=== PATIENT | male | born 1950 | race Caucasian/White ===

== ENCOUNTER 2022-02-28 12:01 | Inpatient (IN) | payer MEDICARE ==
[~2022-02-28] VITALS: Ht 177.8 cm; Wt 54.0 kg
[~2022-02-28 12:01] MED LIST: ASPI325; HYDR-86 PO; VARE1 PO
[2022-02-28 12:43] LABS: BASOPHILS ABSOLUTE AUTO 0.02 K/mm3 (0.00-0.23); BASOPHILS PERCENT AUTO 0 % (0-2); EOSINOPHILS ABSOLUTE AUTO 0.04 K/mm3 (0.00-0.68); EOSINOPHILS PERCENT AUTO 0 % (0-6); Hematocrit 38.1 % (37.0-53.0); Hemoglobin 13.3 g/dL (13.5-17.5); IMMATURE GRAN ABSOLUTE AUTO 0.03 K/mm3 (0.00-0.10); IMMATURE GRAN PERCENT AUTO 0 % (0-1); LYMPHOCYTES ABSOLUTE AUTO 1.74 K/mm3 (0.84-5.20); LYMPHOCYTES PERCENT AUTO 16 % (21-46); MONOCYTES ABSOLUTE AUTO 1.06 K/mm3 (0.16-1.47); MONOCYTES PERCENT AUTO 10 % (4-13); Mean Corpuscular HGB 32.8 pg (26.0-34.0); Mean Corpuscular HGB Conc 34.9 g/dL (31.5-36.5); Mean Corpuscular Volume 94 fL (80-100); Mean Platelet Volume 9.6 fL (9.1-12.4); NEUTROPHILS ABSOLUTE AUTO 8.03 K/mm3 (1.96-9.15); NEUTROPHILS PERCENT AUTO 74 % (41-73); Platelet Count 257 K/mm3 (150-400); RDW Coefficient Variation 13.2 % (11.7-14.2); RDW Standard Deviation 45.5 fL (35.1-46.3); Red Blood Cell Count 4.06 M/mm3 (4.30-5.90); White Blood Cell Count 10.92 K/mm3 (4.00-11.30)
[2022-02-28 12:55] LABS: Bicarbonate Venous 25.7 mmol/L (24.0-30.0); PCO2 Venous 59.4 mmHg (38-42)
[2022-02-28] MEDS ORDERED: TAMS.4ER PO (12:57)
[2022-02-28] MEDS ORDERED: Norco 10-325 T1 EACH PO (12:57)
[2022-02-28] MEDS ORDERED: METO25ER PO (12:57)
[2022-02-28] MEDS ORDERED: Acetaminophen650 M1 (12:58)
[2022-02-28] MEDS ORDERED: ALBU90OI6 INH (12:58)
[2022-02-28 12:59] LABS: Bun/Creatinine Ratio 18.8 (12.0-20.0); Calcium, Blood 8.7 mg/dL (8.5-10.1); Creatinine, Blood 0.58 mg/dL (0.60-1.20); Potassium, Blood 5.2 mmol/L (3.5-5.5)
[2022-02-28 13:47] LABS: Influenza A, PCR NEGATIVE (NEGATIVE); Influenza B, PCR NEGATIVE (NEGATIVE); Resp Syncytial Virus, PCR NEGATIVE (NEGATIVE); SARS-Cov-2 (COVID-19) PCR, MMC NEGATIVE (NEGATIVE)
[2022-02-28 17:08] LABS: PCO2 Arterial 41.2 mmHg (35-45); PO2 Arterial 84.8 mmHg (80-100); pH Blood Arterial 7.38 (7.35-7.45)
--- NOTE | 2022-02-28 18:12 | NUR ---
ASSUMED CARE OF PT THIS PM PT. ALERT AND ORIENTED UPON ARRIVAL TO UNIT, PT WAS SWITCHED TO TO 2LNC UPON ARRIVAL AND TITRATED DOWN HE WAS NOT TOLERATING CPAP MASK. COUGHING CONSTANTLY AND FEELING UNABLE TO BREATHE. PT. CONTINUES COUGHING CONSTANTLY, DRY HACKING COUGH, WITH ONE TO TWO WORDS. RT NOTIFIED AND BREATHING TX GIVEN. CONTINUES TO HAVE AUDIBLE WHEEZES T/O. PT. REPORTS CHRONIC PAIN. PT LIVES INDEPENDENTLY AT HOME, IS AN EVERY DAY SMOKER AND DRINKS AT LEAST 6 BEERS/ DAY. FAMILY AT BEDSIDE AND REPORTS EXTREME WEIGHT LOSS RECENTLY AND POOR APPETITE. HTN NOTED AND SINUS TACH UPON ARRIVAL. DENIES ANY CHEST PAIN OR PRESSURE. PT ORIENTED TO ROOM, AND CALL LIGHT, INSTRUCTED TO CALL PRIOR TO GETTING OOB DUE TO WORK OF BREATHING. VERBALIZED UNDERSTANDING.
--- NOTE | 2022-02-28 18:16 | NUR ---
DR. NUNES AT BEDSIDE TO EVAL. FAMILY ABLE TO VOICE CONCERNS AND UPDATED ON PT CONDITION. AWAITING ADDITIONAL ORDERS.
--- NOTE | 2022-02-28 18:16 | NUR ---
PT ASSISTED TO VOID USING URINAL AND NEW ATTENDS PLACED.
[2022-03-01 04:42] LABS: BASOPHILS PERCENT AUTO 0 % (0-2); EOSINOPHILS PERCENT AUTO 0 % (0-6); Hematocrit 36.1 % (37.0-53.0); Hemoglobin 12.6 g/dL (13.5-17.5); IMMATURE GRAN ABSOLUTE AUTO 0.03 K/mm3 (0.00-0.10); IMMATURE GRAN PERCENT AUTO 0 % (0-1); LYMPHOCYTES ABSOLUTE AUTO 0.72 K/mm3 (0.84-5.20); LYMPHOCYTES PERCENT AUTO 9 % (21-46); MONOCYTES ABSOLUTE AUTO 0.15 K/mm3 (0.16-1.47); MONOCYTES PERCENT AUTO 2 % (4-13); Mean Corpuscular HGB 32.6 pg (26.0-34.0); Mean Corpuscular HGB Conc 34.9 g/dL (31.5-36.5); Mean Corpuscular Volume 93 fL (80-100); Mean Platelet Volume 9.4 fL (9.1-12.4); NEUTROPHILS ABSOLUTE AUTO 7.45 K/mm3 (1.96-9.15); NEUTROPHILS PERCENT AUTO 89 % (41-73); Platelet Count 259 K/mm3 (150-400); RDW Coefficient Variation 12.9 % (11.7-14.2); RDW Standard Deviation 44.5 fL (35.1-46.3); Red Blood Cell Count 3.87 M/mm3 (4.30-5.90); White Blood Cell Count 8.35 K/mm3 (4.00-11.30)
[2022-03-01 05:01] LABS: Albumin, Blood 3.4 g/dL (3.4-5.0); Albumin/Globulin Ratio 0.9 (0.8-1.8); Bilirubin, Total 0.6 mg/dL (0.1-1.0); Bun/Creatinine Ratio 20.9 (12.0-20.0); Creatinine, Blood 0.57 mg/dL (0.60-1.20); Globulin, Blood 3.8 g/dL (2.2-4.0); Magnesium, Blood 2.3 mg/dL (1.6-2.4); Phosphorus, Blood 2.8 mg/dL (2.5-4.9); Total Protein, Blood 7.2 g/dL (6.4-8.2)
--- NOTE | 2022-03-01 07:14 | NUR ---
SHIFT SUMMARY PT AOX4 T/O SHIFT. DYSPNEIC, FREQUENTLY SOB. COUGHING INDUCED WITH SPEAKING, REPOSITIONING, TAKING PILLS. SUBSIDES WITH UNINTERRUPTED REST. MEDICATED FOR COUGH PER ORDERS. SATS DROPPED W/SLEEP INTO HIGH 80'S LOW 90'S. O2 INCREASED BY RT TO 5 L VIA NC AND TITRATED DOWN THIS AM TO 2 L BY THIS RN. SATS MAINTAIN 96-98% ON 2 L WHILE AT REST THIS AM. EXPIRATORY WHEEZING AND DIMINISHED LS T/O. PT STATES HAVING SOME ANXIETY THIS AM W/COUGHING EPISODES. DENIES CP. STATES NORCO ADMIN HELPS W/SHOULDER/BACK PAIN. USES URINAL IN BED. NS INFUSING PER ORDER AT 50 MLS/HR.
--- NOTE | 2022-03-01 07:26 | NUR ---
Received report from Noc RN. Patient awake in bed and is alert and oriented and able to communicate his needs. He has ongoing cough that has been addresssed with meds per MAR without success. He is on 1.5 L O2 via NC and sats 97%. He has 20ga IV in LAC and is infusing NS 50 ml/hr. He stats poor appetite here and at home r/t not having any energy, dietary consult in. Lives by self and plan is for him to move to [place] with son and daughter inlaw for better care. Temp 98.3. Patient states has no plan to stop smoking or drinking. He will be seen by [facility] family medicine today.
--- NOTE | 2022-03-01 09:58 | NUR ---
Patient had ST consult and now puree diet, see sheet for more restrictions. He tolerated meds and breakfast. His called and spoke with him. He sats up at bedside and dangled while eating breakfast. he was increased to 3L O2 via NC while up at bedside as he felt SOB although sats remained >94%.
--- NOTE | 2022-03-01 11:42 | NUR ---
Family in room and [facility] nurse note to have care management to meet with family on thursday to help transition to there care. He has been reduced to 2L O2 and tolerating well and sats >90%. He has resting quietly, RT in room doing updraft.
--- NOTE | 2022-03-01 15:00 | NUR ---
Patient sitting up in chair tolerating well. He remains on 3L O2 via NC and only SOB with exertion. Tolerating PO med per ST feeding order. CIWA remains a 9. gave report to Bela SOLOMON.
--- NOTE | 2022-03-01 17:33 | NUR ---
UPDATE PT REMAINS ALERT AND ORIENTED. O2 SATS >90% ON 3L NC. PT REPORTS COUGH HAS IMPROVED. FAMILY AT BEDSIDE. WILL CONTINUE TO MONITOR AND REPORT TO ONCOMIG RN
[2022-03-02 04:09] LABS: BASOPHILS ABSOLUTE AUTO 0.01 K/mm3 (0.00-0.23); BASOPHILS PERCENT AUTO 0 % (0-2); EOSINOPHILS PERCENT AUTO 0 % (0-6); Hematocrit 33.7 % (37.0-53.0); Hemoglobin 11.8 g/dL (13.5-17.5); IMMATURE GRAN ABSOLUTE AUTO 0.06 K/mm3 (0.00-0.10); IMMATURE GRAN PERCENT AUTO 1 % (0-1); LYMPHOCYTES ABSOLUTE AUTO 0.78 K/mm3 (0.84-5.20); LYMPHOCYTES PERCENT AUTO 7 % (21-46); MONOCYTES ABSOLUTE AUTO 0.41 K/mm3 (0.16-1.47); MONOCYTES PERCENT AUTO 4 % (4-13); Mean Corpuscular HGB 33.1 pg (26.0-34.0); Mean Corpuscular Volume 94 fL (80-100); Mean Platelet Volume 9.4 fL (9.1-12.4); NEUTROPHILS ABSOLUTE AUTO 10.47 K/mm3 (1.96-9.15); NEUTROPHILS PERCENT AUTO 89 % (41-73); Platelet Count 258 K/mm3 (150-400); RDW Coefficient Variation 12.9 % (11.7-14.2); RDW Standard Deviation 44.8 fL (35.1-46.3); Red Blood Cell Count 3.57 M/mm3 (4.30-5.90); White Blood Cell Count 11.73 K/mm3 (4.00-11.30)
[2022-03-02 04:32] LABS: Bun/Creatinine Ratio 23.9 (12.0-20.0); Calcium, Blood 8.8 mg/dL (8.5-10.1); Creatinine, Blood 0.54 mg/dL (0.60-1.20); Magnesium, Blood 2.4 mg/dL (1.6-2.4); Phosphorus, Blood 2.7 mg/dL (2.5-4.9); Potassium, Blood 4.3 mmol/L (3.5-5.5)
--- NOTE | 2022-03-02 07:10 | NUR ---
SHIFT SUMMARY PT AOX4, DYSPNEIC AT REST AND WORSE W/USING URINAL IN BED OR COUGHING. THIS AM AROUND 0600 HAD EPISODE OF COUGHING AND BEGAN TO WORSEN, RT CALLED DURING SHIFT CHANGE. PLACED BACK ON BIPAP AFTER DISCUSSING WITH PT D/T PT COMPLETING BREATHING TX AND STATING HE STILL FELT BAD AND "NEEDED TO DO SOMETHING" FOR HIS BREATHING. PT APPEARES TO CALM FOLLOWING BIPAP BACK ON. PT REQUESTS OFF AT THIS TIME SO HE CAN DRINK COFFEE RT AT BEDSIDE TO SEE PT.
--- NOTE | 2022-03-02 15:41 | NUR ---
UPDATE PT REMAINS ALERT AND ORIENTED. VS STABLE. O2 SATS >90% ON 4L NC. PT ABLE TO AMBULATE TO BATHROOM WITH FWW AND 1 ASSIST THIS AFTERNOON, BUT DID GET SOB WITH RESPIRATIONS IN THE 30'S. PT PLACED ON BIPAP FOR SHORT AMOUNT OF TIME TO RECOVER. FAMILY AT BEDSIDE UPDATED ON PLAN OF CARE. REPORT GIVEN TO MEDICAL FLOOR RN AND PT TO BE TAKEN UP TO 336 BY BED.
--- NOTE | 2022-03-02 18:34 | NUR ---
PATIENT IS ALERT AND ORIENTED AND COOPERATIVE WITH CARE. ON 5L O2 VIA NC. BIPAP IS AT THE BEDSIDE. BEER WITH MEALS. FAMILY WAS AT THE BEDSIDE ON TRASNFER. STATES HIS PAIN HAS RESOLVED. WILL CONTINUE TO MONITOR
[2022-03-03 05:30] LABS: BASOPHILS ABSOLUTE AUTO 0.01 K/mm3 (0.00-0.23); BASOPHILS PERCENT AUTO 0 % (0-2); EOSINOPHILS PERCENT AUTO 0 % (0-6); Hematocrit 37.8 % (37.0-53.0); Hemoglobin 12.7 g/dL (13.5-17.5); IMMATURE GRAN ABSOLUTE AUTO 0.06 K/mm3 (0.00-0.10); IMMATURE GRAN PERCENT AUTO 1 % (0-1); LYMPHOCYTES ABSOLUTE AUTO 0.59 K/mm3 (0.84-5.20); LYMPHOCYTES PERCENT AUTO 5 % (21-46); MONOCYTES ABSOLUTE AUTO 0.46 K/mm3 (0.16-1.47); MONOCYTES PERCENT AUTO 4 % (4-13); Mean Corpuscular HGB 31.8 pg (26.0-34.0); Mean Corpuscular HGB Conc 33.6 g/dL (31.5-36.5); Mean Corpuscular Volume 95 fL (80-100); Mean Platelet Volume 9.2 fL (9.1-12.4); NEUTROPHILS ABSOLUTE AUTO 10.68 K/mm3 (1.96-9.15); NEUTROPHILS PERCENT AUTO 91 % (41-73); Platelet Count 329 K/mm3 (150-400); RDW Coefficient Variation 13.1 % (11.7-14.2); RDW Standard Deviation 46.3 fL (35.1-46.3); Red Blood Cell Count 3.99 M/mm3 (4.30-5.90)
[2022-03-03 06:07] LABS: Bun/Creatinine Ratio 22.6 (12.0-20.0); Calcium, Blood 9.2 mg/dL (8.5-10.1); Creatinine, Blood 0.58 mg/dL (0.60-1.20); Magnesium, Blood 2.5 mg/dL (1.6-2.4); Phosphorus, Blood 2.8 mg/dL (2.5-4.9); Potassium, Blood 4.2 mmol/L (3.5-5.5)
--- NOTE | 2022-03-03 17:51 | NUR ---
DAY SHIFT SUMMARY 71 YR OLD MALE PT WITH HYPERCAPENIC HYPOXIC RESP FAILURE. PT WENT FOR CT OF CHEST WITH CONTRAST THIS SHIFT. FAMILY AT BEDSIDE AT TIMES DURING SHIFT. 5L O2 NC, ABLE TO AMBULATE WITH ONE ASSIST AND FRONT WHEEL WALKER. CALL LIGHT WITHIN REACH AND ABLE TO CALL APPROPRIATELY.
[2022-03-04 05:36] LABS: Bun/Creatinine Ratio 25.3 (12.0-20.0); Calcium, Blood 8.9 mg/dL (8.5-10.1); Creatinine, Blood 0.55 mg/dL (0.60-1.20); Potassium, Blood 4.2 mmol/L (3.5-5.5)
--- NOTE | 2022-03-04 05:54 | NUR ---
SHIFT SUMMARY NOC: PT ON 5L NC SATTING IN LOW 90'S. PT HAS HACKING COUGH SCANTLY PRODUCTIVE YELLOW SPUTUM. PT GIVEN PRN CODEINE COUGH SYRUP AND TESSALON PEARLS AND PT WAS ABLE TO FALL ASLEEP FOR ABOUT 4 HOURS. PT VERY CONCERNED WITH PUREED DIET AND THICKENED LIQUIDS. PT TOLD TO WORK WITH SPEECH THERAPY SO THEY CAN REASSESS SWALLOWING STATUS.
--- NOTE | 2022-03-04 16:53 | NUR ---
DAY SHIFT SUMMARY 71 YR OLD MALE PT WITH HYPERCAPENEIC HYPOXIC RESP FAILURE. IV ABX AND PAIN MEDS PER EMAR, CHRONIC NECK AND SHOULDER PAIN. PT WORKED WITH ST AND OT THIS SHIFT. DIET CHANGES MADE BY ST. PT CURRENTLY ON 3L O2 NC. CALL LIGHT WITHIN REACH AND ABLE TO CALL APPROPRIATE. PLAN IS TO DISCHARGE EITHER HOME WITH FRIENDS STAYING AROUND THE CLOCK OR TO SON'S HOME IN [place].
--- NOTE | 2022-03-05 07:38 | NUR ---
SHIFT SUMMARY NOC: PT REMAINS ON 4L NC SOB WITH EXERTION, PRODUCITVE HACKING COUGH SMALL YELLOW THICK SPUTUM. PRN CODEINE COUGH SYRUP AND TESSALON PEARLS GIVEN WITH POSITIVE EFFECT. PT IS HAPPY HIS DIET HAS BEEN PROGRESSED TO MECHANICAL SOFT AND THIN LIQUIDS. PT SLEPT MOST OF NIGHT. NO ADVERSE EVENTS.
--- NOTE | 2022-03-05 11:40 | NUR ---
ELEVATED HR: PATIENT HAS HAD AN ELEVATED HR THIS MORNING, TYPICALLY AROUND 107. INTO THE 110'S WITH COUGHING. PATIENT SITTING UP IN THE CHAIR. PATIENT ASYMPTOMATIC (DENIES CHEST PAIN, DIZZINESS, FLUTTER IN CHEST). NOTIFIED DR. COOPER. NO NEW ORDERS AT THIS TIME.
--- NOTE | 2022-03-05 17:09 | NUR ---
END OF SHIFT SUMMARY: PATIENTT DENIED SHORTNESS OF BREATH OR DIFFICULTY BREATHING TODAY. PATIENT UP TO THE CHAIR WITHOUT INCREASED WORK OF BREATHING OR DECREASE IN SPO2. PATIENT EXPERIENCED SOME ELEVATED HRS TODAY (BETWEEN 100-115). PATIENT DENIED CHEST PAIN/DISCOMFORT AND DIZZINESS/LIGHTHEADEDNESS. (SEE NURSES NOTE). BY EARLY EVENING, HR DECREASED TO HIGH 90S. PATIENT STARTED THE SHIFT ON 4L. PATIENT SATURATIONS 97-98%. BY THE END OF THE SHIFT, PATIENT DOWN TO 2L WITH SATURATIONS 97-98%. CONTINUES TO DENY SHORTNESS OF BREATH OR DIFFICULTY BREATHING.
--- NOTE | 2022-03-06 03:09 | NUR ---
CALL PLACED TO PALLIATIVE CARE FOR ASSISTANCE, FAMILY LIVES IN [place] AND WANT TO TAKE THE PT HOME, AND FAMILY REQUESTED WANTING TO TALK TO PALLIATIVE CARE. PT'S ALSO IS ON HOSPICE. ALSO CONTACTED CARE MANAGEMENT - THAT FURTHER ASSISTANCE WILL LIKELY BE NEEDED CPR REHAB ORDER IN PLACE AND FAMILY IS REQUESTING PT MOVE TO [place] WITH THEM. REID, SON [phone].
--- NOTE | 2022-03-06 04:46 | NUR ---
SHIFT SUMMARY - PT RECEIVED A BED BATH LAST NOC. PT UP TO BRP WITH RUBBER TIRE CURER, THEN PT UP TO THE CHAIR INDEPENDENTLY - PT REPORTED GETTING DIZZY/LIGHTHEADED WITH THIS ACTIVITY. PT PLACED BACK TO BED - BED BATH GIVEN, PT WANTED A SHOWER - DUE TO DIZZINESS AND BEING LIGHTHEADED PT AGREEABLE TO A BED BATH INSTEAD. SATS LOW 80'S WITH THIS ACTIVITY - ADJUSTED OXYGEN UP TO 3L NC - PT WAS ABLE TO RECOVER ON HIS OWN WITH DEEP BREATHING WITHIN 1 MINUTE. CONTINUOUS BIOX ON PT ATE A BANANA LAST NOC. APPARENTLY THE FAMILY'S PLAN, PER SON, IS FOR PT TO TRAVEL TO [place] WITH THEM. PT IS TO HAVE CPR REHAB. PT REPORTS HIS IS ON HOSPICE - PER NOTE IT APPEARS PT'S IS IN A FACILITY. CALL PLACED TO PALLIATIVE/CARE MANAGEMENT FOR ASSISTANCE - PLEASE SEE MY PREVIOUS NOTE. PT HAS HAD AN OCCASIONAL PRODUCTIVE COUGH - SPUTUM NOT VISUALIZED. FLUIDS AT BEDSIDE. CALL LIGHT WITHIN REACH. BED IN LOW POSITION. WILL CONTINUE TO MONITOR PT UNTIL AM SHIFT CHANGE.
[2022-03-06 05:30] LABS: BASOPHILS ABSOLUTE AUTO 0.01 K/mm3 (0.00-0.23); BASOPHILS PERCENT AUTO 0 % (0-2); EOSINOPHILS PERCENT AUTO 0 % (0-6); Hematocrit 42.7 % (37.0-53.0); Hemoglobin 14.9 g/dL (13.5-17.5); IMMATURE GRAN PERCENT AUTO 1 % (0-1); LYMPHOCYTES ABSOLUTE AUTO 0.95 K/mm3 (0.84-5.20); LYMPHOCYTES PERCENT AUTO 8 % (21-46); MONOCYTES ABSOLUTE AUTO 1.08 K/mm3 (0.16-1.47); MONOCYTES PERCENT AUTO 10 % (4-13); Mean Corpuscular HGB 32.9 pg (26.0-34.0); Mean Corpuscular HGB Conc 34.9 g/dL (31.5-36.5); Mean Corpuscular Volume 94 fL (80-100); Mean Platelet Volume 8.9 fL (9.1-12.4); NEUTROPHILS ABSOLUTE AUTO 9.26 K/mm3 (1.96-9.15); NEUTROPHILS PERCENT AUTO 81 % (41-73); Platelet Count 392 K/mm3 (150-400); RDW Coefficient Variation 12.6 % (11.7-14.2); RDW Standard Deviation 43.7 fL (35.1-46.3); Red Blood Cell Count 4.53 M/mm3 (4.30-5.90)
[2022-03-06 05:45] LABS: Albumin, Blood 3.3 g/dL (3.4-5.0); Bilirubin, Total 0.7 mg/dL (0.1-1.0); Bun/Creatinine Ratio 30.3 (12.0-20.0); Calcium, Blood 9.3 mg/dL (8.5-10.1); Creatinine, Blood 0.66 mg/dL (0.60-1.20); Globulin, Blood 3.4 g/dL (2.2-4.0); Potassium, Blood 4.2 mmol/L (3.5-5.5); Total Protein, Blood 6.7 g/dL (6.4-8.2)
--- NOTE | 2022-03-06 12:17 | NUR ---
Initial [facility] Care visit - Introduced myself to pt and his son sitting at bedside. Son states he lives four hours away and they are anxious to get information re: d/c planning, HH and transition to home. Pt sitting up in chair next to bed. He appears cachectic, frail and sob at rest. O2 via nc in place. Pt states he will be going home with O2 and this is another concern. Pt asked if he would get lunch and when he would be released. I spoke with ACC, charge aide and CM at desk. Pt does not have d/c orders in system yet so no dc timeframe known yet. CM states she will do her best to be in contact with family by phone or in person, today before 4:30 pm and I passed this on to son and pt. I confirmed that pt would be served meals until he left the building. Explained the purpose of my visit to review advanced care planning and advanced life support measure choices. Pt states and son confirms that this was reviewed my Drs and that pt wishes to be a full code. Pt vacilated and said he wanted us to try once and then let him go. I reviewed benefit vs burden of CPR and ventilation with pt's current declining health status, with severe COPD, malnutrition, advancing age. I encouraged them to discuss as a family and with PCP. Pt states it will be son's decision. Booklet, "Hard Choices for loving people" given to son and pt to review in particular Chapter 1 on CPR. Son and pt verbalized appreciation of the visit and conversation. Pt's RN in room when I returned. Son requesting contact with for clarification on d/c timeframe. He has rounded already. RN to call Dr for son.
[2022-03-06] MEDS ORDERED: Tessalon200 MG PO (12:19)
[2022-03-06] MEDS ORDERED: GABA100 PO (12:20)
[2022-03-06] MEDS ORDERED: DILT120 PO (12:20)
[2022-03-06] MEDS ORDERED: FOLI1 PO (12:20)
[2022-03-06] MEDS ORDERED: B-1100 M1 PO (12:21)
[2022-03-06] MEDS ORDERED: LISI20 PO (12:21)
[2022-03-06] MEDS ORDERED: PRED20 PO (12:21)
[2022-03-06] MEDS ORDERED: NICO21TP TOP (12:21)
[2022-03-06] MEDS ORDERED: LEVFLO500 PO (13:03)
--- NOTE | 2022-03-06 15:55 | NUR ---
DISCHARGE SUMMARY PATIENT DISCHARGED HOME. DISCHARGE PAPERWORK REVIEWED WITH PATIENT AND PATIENTS FAMILY. PRESCRIPTIONS FAXED TO PATIENTS PREFERRED PHARMACY AND FAMILY ALREADY PICKED UP MEDICATION. IV D/C'D. TIMMY DELIVERED 02 TANK AND REVIEWED HOW TO USE WITH PATIENT AND FAMILY. PATIENT AND ALL BELONGINGS TAKEN VIA WHEELCHAIR TO FAMILY'S VEHICLE AND PATIENT TAKEN WITH FAMILY TO [place].
== END 2022-03-06 15:44 | disposition home health service (06) | DRG 177 ==
LOC: ER 12:01 → PCU 16:15 → MEDS 03-02 15:54
PROVIDERS: Internal Medicine; Student in an Organized Health Care Education/Training Program; ADMIT Hospitalist
PROC: HZ2ZZZZ Detoxification Services for Substance Abuse Treatment (ICD-10-PCS; principal; 2022-02-28)
PROC: 5A09357 Assistance with Respiratory Ventilation, Less than 24 Consecutive Hours, Continuous Positive Airway Pressure (ICD-10-PCS; 2022-02-28)
DX: J69.0 Pneumonitis due to inhalation of food and vomit (principal); J96.01 Acute respiratory failure with hypoxia; E43 Unspecified severe protein-calorie malnutrition; J96.02 Acute respiratory failure with hypercapnia; Z68.1 Body mass index [BMI] 19.9 or less, adult; E87.1 Hypo-osmolality and hyponatremia; R64 Cachexia; Z20.822 Contact with and (suspected) exposure to COVID-19; J15.5 Pneumonia due to Escherichia coli; F17.210 Nicotine dependence, cigarettes, uncomplicated; M54.9 Dorsalgia, unspecified; D64.9 Anemia, unspecified; M85.80 Other specified disorders of bone density and structure, unspecified site; F10.20 Alcohol dependence, uncomplicated; D72.828 Other elevated white blood cell count; M54.2 Cervicalgia; T38.0X5A Adverse effect of glucocorticoids and synthetic analogues, initial encounter; J43.9 Emphysema, unspecified; G89.4 Chronic pain syndrome; N40.0 Benign prostatic hyperplasia without lower urinary tract symptoms; M54.12 Radiculopathy, cervical region; Z71.41 Alcohol abuse counseling and surveillance of alcoholic; Z98.890 Other specified postprocedural states; Z79.82 Long term (current) use of aspirin; Z79.899 Other long term (current) drug therapy
CPT/HCPCS: 0241U; 36415; 36600; 71045; 71260; 80048; 80053; 82803; 82947; 83735; 83880; 84100; 84145; 85025; 85379; 87070; 87077; 87186; 87205; 92526; 92610; 93005; 93010; 93306; 94640; 94660; 94664; 94760; 94762; 96365; 96366; 96374; 96375; 97110; 97116; 97162; 97166; 97530; 98960; 99285-25; A9270; J0456; J0696; J1650; J2060; J2920; J2930; J3411; J3475; J7030; J7050; J7512; Q9967

== ENCOUNTER → 2023-04-09 | Outpatient (CLI) | payer MEDICARE ==
[~2023-04-09] MED LIST changes: +ALBU90OI6 INH; +Acetaminophen650 M1; +B-1100 M1 PO; +DILT120 PO; +FOLI1 PO; +GABA100 PO; +LEVFLO500 PO; +LISI20 PO; +METO25ER PO; +NICO21TP TOP; +Norco 10-325 T1 EACH PO; +PRED20 PO; +TAMS.4ER PO; +Tessalon200 MG PO
[2023-04-09 09:56] LABS: Source, Urine Clean Catch
[2023-04-09 12:50] LABS: Appearance, Urine Clear (Clear); Bilirubin, Urine Neg (Neg); Blood, Urine 1+ (Neg); Color, Urine Yellow (P-Yellow); Glucose Qualitative, Urine Neg (Neg); Ketones, Urine Neg (Neg); Leukocyte Esterase, Urine Neg (Neg); Nitrite, Urine Neg (Neg); Protein, Urine Neg (Neg); Specific Gravity, Urine 1.005 (1.003-1.022); Urobilinogen, Urine NORM (Normal)
[2023-04-09 13:44] LABS: Bacteria Few /hpf; Squamous Epithelial Cells Rare /hpf (Few); White Blood Cells, Urine 0-2 /hpf (0-5)
== END | disposition home or self-care (01) ==
LOC: LAB 09:40 → LAB SHORT 09:40
PROVIDERS: Nurse Practitioner Family
DX: E78.2 Mixed hyperlipidemia (principal)
CPT/HCPCS: 81001

== ENCOUNTER 2023-05-09 12:34 | Inpatient (IN) | payer MEDICARE ==
[~2023-05-09] VITALS: Ht 172.7 cm; Wt 56.5 kg
[2023-05-09 14:30] LABS: BASOPHILS ABSOLUTE AUTO 0.02 K/mm3 (0.00-0.23); BASOPHILS PERCENT AUTO 0 % (0-2); Bicarbonate Venous 23.5 mmol/L (24.0-30.0); EOSINOPHILS PERCENT AUTO 0 % (0-6); Hematocrit 52.1 % (37.0-53.0); IMMATURE GRAN ABSOLUTE AUTO 0.09 K/mm3 (0.00-0.10); IMMATURE GRAN PERCENT AUTO 1 % (0-1); LYMPHOCYTES ABSOLUTE AUTO 0.83 K/mm3 (0.84-5.20); LYMPHOCYTES PERCENT AUTO 5 % (21-46); MONOCYTES ABSOLUTE AUTO 1.08 K/mm3 (0.16-1.47); MONOCYTES PERCENT AUTO 7 % (4-13); Mean Corpuscular HGB 32.6 pg (26.0-34.0); Mean Corpuscular HGB Conc 34.5 g/dL (31.5-36.5); Mean Corpuscular Volume 94 fL (80-100); NEUTROPHILS PERCENT AUTO 87 % (41-73); PCO2 Venous 38.6 mmHg (38-42); Platelet Count 241 K/mm3 (150-400); RDW Standard Deviation 48.9 fL (35.1-46.3); Red Blood Cell Count 5.52 M/mm3 (4.30-5.90); White Blood Cell Count 16.02 K/mm3 (4.00-11.30)
[2023-05-09 14:51] LABS: Albumin, Blood 3.4 g/dL (3.4-5.0); Albumin/Globulin Ratio 0.7 (0.8-1.8); Bilirubin, Total 1.2 mg/dL (0.1-1.0); Bun/Creatinine Ratio 57.3 (12.0-20.0); Calcium, Blood 9.5 mg/dL (8.5-10.1); Creatinine, Blood 0.94 mg/dL (0.60-1.20); Globulin, Blood 4.6 g/dL (2.2-4.0); Magnesium, Blood 2.9 mg/dL (1.6-2.4); Phosphorus, Blood 4.3 mg/dL (2.5-4.9); Potassium, Blood 4.3 mmol/L (3.5-5.5)
[2023-05-09 14:52] LABS: International Normalized Ratio 1.01; Prothrombin Time Results 10.6 Sec (9.7-11.5)
[2023-05-09] MEDS ORDERED: REMERON1510 PO (15:31)
[2023-05-09 16:49] LABS: Source, Urine Clean Catch
[2023-05-09 16:51] LABS: Appearance, Urine Clear (Clear); Bilirubin, Urine Neg (Neg); Blood, Urine 4+ (Neg); Color, Urine Yellow (P-Yellow); Glucose Qualitative, Urine Neg (Neg); Ketones, Urine 1+ (Neg); Leukocyte Esterase, Urine Neg (Neg); Nitrite, Urine Neg (Neg); Protein, Urine 3+ (Neg); Urobilinogen, Urine NORM (Normal)
[2023-05-09 17:04] LABS: Bacteria Few /hpf; Red Blood Cells, Urine 0-2 /hpf (0-2); Squamous Epithelial Cells Rare /hpf (Few); White Blood Cells, Urine 0-2 /hpf (0-5)
[2023-05-09 23:00] VITALS: BP 148/94
[2023-05-10] VITALS (15 sets, daily range): BP systolic 145–190; BP diastolic 83–103
--- NOTE | 2023-05-10 03:38 | NUR ---
END OF SHIFT: VERY MILD IMPROVEMENT OF ABLE TO ASK QUESTIONS (3-5 WORD OCCASSIONALLY.) PREVIOUS WAS JST STARING AT THE CEILING, PATIENT CURRENTLY SLEEPING IN NO SIGN OF DISTRESS, BLOOD PRESSURE HAVE BEEN HYPERTENSIVE IN THE 150-160'S MILDLY IMPROVED ON THIS AM VITALS. PATIENT NOW ONLY ON 3L VIA NC WAS UP TO 7L WITH PAIN, MOVEMENT, AND ASSESSMENT ON ARRIVAL. ST WITH A 4-5 BEAT OF PVC'S. WAS ABLE TO PRODUCE SPUTUM MINIMALLY WERE BEFORE SECRETIONS WERE CAUSING HIM CHOKE NEEDING SUCTION. CONDOM CATH WORKING WELL IN PLACE. MULTIPLE WOUNDS ON RIGHT SIDE COVERED, PATIENT HAS BEEN REFUSING REPOSITIONS AND SUCTIONING, AFEBRILE, NO BM THIS SHIFT. WILL CONTINUE TO MONITOR UNTIL SHIFT CHANGE, NO CONCERNS FROM THIS RN. NS RUNNING AT 200 TO FINISH FOR A 3RD LITER.
[2023-05-10 03:41] LABS: Hematocrit 40.3 % (37.0-53.0); Hemoglobin 13.6 g/dL (13.5-17.5); Mean Corpuscular HGB 31.9 pg (26.0-34.0); Mean Corpuscular HGB Conc 33.7 g/dL (31.5-36.5); Mean Corpuscular Volume 94 fL (80-100); Mean Platelet Volume 10.1 fL (9.1-12.4); Platelet Count 200 K/mm3 (150-400); RDW Coefficient Variation 14.2 % (11.7-14.2); RDW Standard Deviation 48.8 fL (35.1-46.3); Red Blood Cell Count 4.27 M/mm3 (4.30-5.90); White Blood Cell Count 12.82 K/mm3 (4.00-11.30)
[2023-05-10 04:04] LABS: Bun/Creatinine Ratio 50.2 (12.0-20.0); Calcium, Blood 8.1 mg/dL (8.5-10.1); Creatinine, Blood 0.88 mg/dL (0.60-1.20); Magnesium, Blood 2.4 mg/dL (1.6-2.4); Potassium, Blood 3.8 mmol/L (3.5-5.5)
--- NOTE | 2023-05-10 08:00 | NUR ---
PEDALS PULSES FAINT 1+ BILAT
--- NOTE | 2023-05-10 11:00 | NUR ---
PEDAL PULSES 1+ BILAT
--- NOTE | 2023-05-10 11:23 | NUR ---
FAMILY AT BEDSIDE AWATING TO SPEAK TO ORTHOPEDIC SURGEON, THEY ARE UPDATED BY MYSELF AND DR BELTRAN ABOUT POSSIBLITY OF SURGERY TODAY AND WHEN THE SURGEON WILL BE AROUND. PT HAS A WOUND TO LATERAL ASPECT OF RT HIP, PHOTOS IN CHART PF WOUND. PT IS ALERT, ORIENTED TO SELF AND FAMILY, HE CAN MAKE NEEDS KNOWN WITH 1-2 WORD SENTENCES. PT WITH VERY DECREASED SWALLOW REFLEX AND COUGHS EVEN WITH SUCTION SWABS, FAMILY IS HUMAN RESOURCES CONSULTANT LIGHT FREQUENTLY ASKING FOR SWABING OFTEN, FAMILY ASKING THAT PT BE ALLOWED TO DRINK AND USE A STRAW, THEY ARE EDUCATED BY MULTIPLE SATFF MEMEBERS ABOUT WHY PT IS NPO. SPEECH THEREAPY EVALUATION WILL BE PLACED, THAT WILL BE DONE TOMORROW, WE WERE NOT ABLE TO MOVE FORWARD WITH BEDSIDE SWALLOW PT WITH DECREASE SWALLOW RESPONSE AND THAT HE IS NOT ABLE TO TOLEARATE 90 DEGREES, AND FAMILY ALSO REFUSES TO ALLOW PT TO BE PLACED INTO SAFE POSTION FOR ADEQUATE AND SAFE SWALLOWING. DR BELTRAN IS UDPATED ABOUT ALL OF THESE MENTIONED ISSUES, AND GIVES V/O FOR SPEECH EVALUATION. PALLIATIVE CARE CONSULT WILL ALSO BE PLACED.
--- NOTE | 2023-05-10 12:27 | NUR ---
PT REPOSITIONED AND MEDICATED FOR PAIN. PT NOTED TO HAVE INCREASING APENIC PERIODS THE DAY PROGRESSES
--- NOTE | 2023-05-10 15:10 | NUR ---
2+ PEDAL PULSES AT THIS TIME, Q2 HOUR TURNS CONTINUE. CIWA NEGATIVE, PT ALERT, INTERACTS WELL, TRACKS, NO TREMOR NOTED. MEDICATED FOR PAIN.
--- NOTE | 2023-05-10 15:41 | NUR ---
DR VICENTE TO ROOM TO DISCUSS SURGICAL OPTIONS FOR TREATMENT
--- NOTE | 2023-05-10 17:24 | NUR ---
PT IS ALERT, FREQUENTLY DROWSY, HE BECOMES AGITATED EASILY. PT IS REFUSING REPOSITIONING THIS EVENING, REFUSING ORAL CARE, HE IS INCREASINLY AGITATED WHEN STAFF ATTEMPT TO WORK WITH HIM AND BECOMES MILDLY COMBATIVE WITH STAFF. VSS, DOES HAVE HTN PAIN INCREASES. PT INTERMITTENTLY REMOVES MONITORING EQUIPMENT. FAMILY IS AT BEDSIDE, FAMILY FREQUENTLY TO DESK AND BEVEL FACE STONER AND POLISHER LIGHT FOR NEEDS OR CONCERNS. FAMILY HAS BEEN UPDATED T/O THE DAY BY DR BELTRAN AND DR VICENTE, DR VICENTE PROVIDED EXTENSIVE EDUCATION TO FAMILY. PT REMAINS A/O X1-2. PT REMAINS ON 2-3L NASAL CANNULA, CHEST RISE AND FALL ARE EVEN AND UNLABORED, SKIN PWD. HIP DRESSING REPLACED TODAY DR VICENTE NEEDED TO ASSESS WOUND PLACEMENT FOR POTENTIAL OPERATION.
--- NOTE | 2023-05-10 18:41 | NUR ---
PEDAL PULSES 2+ BILAT. PT MEDICATED ER EMAR. PT DOES AGREE TO ORAL CARE AND REPOSITIONING
--- NOTE | 2023-05-10 21:59 | NUR ---
ASSUMPTION OF CARE: PATIENT IS MORE PAINFUL TODAY, D5 1/2NS RUNNING, WAS MORE ORIENTED DURING DAY, SIMILAR MENTATION TO THE PREVIOUS NIGHT, VERY MORE HYPERTENSIVE WILL TREAT WITH PRN MEDS. NO OTHER CHANGES ASSESSED. WILL CONTINUE TO MONITOR AND CONTROL PAIN AND BP
[2023-05-11] VITALS (9 sets, daily range): BP systolic 118–151; BP diastolic 68–97
[2023-05-11 04:32] LABS: BASOPHILS ABSOLUTE AUTO 0.04 K/mm3 (0.00-0.23); BASOPHILS PERCENT AUTO 0 % (0-2); EOSINOPHILS ABSOLUTE AUTO 0.29 K/mm3 (0.00-0.68); EOSINOPHILS PERCENT AUTO 1 % (0-6); Hemoglobin 13.3 g/dL (13.5-17.5); IMMATURE GRAN ABSOLUTE AUTO 0.07 K/mm3 (0.00-0.10); IMMATURE GRAN PERCENT AUTO 0 % (0-1); LYMPHOCYTES ABSOLUTE AUTO 0.81 K/mm3 (0.84-5.20); LYMPHOCYTES PERCENT AUTO 4 % (21-46); MONOCYTES ABSOLUTE AUTO 1.88 K/mm3 (0.16-1.47); MONOCYTES PERCENT AUTO 9 % (4-13); Mean Corpuscular HGB 32.8 pg (26.0-34.0); Mean Corpuscular HGB Conc 34.1 g/dL (31.5-36.5); Mean Corpuscular Volume 96 fL (80-100); Mean Platelet Volume 10.4 fL (9.1-12.4); NEUTROPHILS ABSOLUTE AUTO 18.01 K/mm3 (1.96-9.15); NEUTROPHILS PERCENT AUTO 85 % (41-73); Platelet Count 188 K/mm3 (150-400); RDW Coefficient Variation 14.2 % (11.7-14.2); RDW Standard Deviation 50.4 fL (35.1-46.3); Red Blood Cell Count 4.06 M/mm3 (4.30-5.90)
[2023-05-11 04:49] LABS: Bun/Creatinine Ratio 33.1 (12.0-20.0); Calcium, Blood 8.4 mg/dL (8.5-10.1); Creatinine, Blood 0.88 mg/dL (0.60-1.20); Potassium, Blood 3.8 mmol/L (3.5-5.5)
--- NOTE | 2023-05-11 06:24 | NUR ---
EOS: SALMA IS IN A PERIODSIMILAR TO MY END OF SHIFT YESTERDAY, WHERE HE IS STARING, RESPONDS TO NAME. RESIDENT INFORMED. ONLY MEDICATED FOR PAIN AND ANXIETY ONCE, STILL NOT FOLLOWING COMMANDS FOR THIS RN ORAL CARE PROVIDED. SPO2 91 VIA NC AT 1L. PATIENT HAS BEEN Q2 TURNED INCREASE TO 1/2NS D5 TO 100, SODIUM INCREASED THROUGH THE NIGHT. YANDEL IN 6 HOURS. NO ACUTE SIGNS OF CARDIAC DISTRESS BEIDES AN INCRESAE TO [place] BUT BLOOD PRESSURE HAS BEEN IMPROVED WELL WITH A ONE TIME DOSE OF PAIN MEDICATIONS. PATIENT DISTAL PEDAL PULSE FROM AFFECT HIP PRESENT AND WARM, AFEBRILE. CONCERNS EXPRESSED TO HOSPITALIST. WILL CONTINUE TO MONITOR UNTIL SHIFT CHNAGE
[2023-05-11 09:19] LABS: PCO2 Arterial 34.5 mmHg (35-45); PO2 Arterial 68.5 mmHg (80-100); pH Blood Arterial 7.46 (7.35-7.45)
[2023-05-11 12:04] LABS: Bun/Creatinine Ratio 29.3 (12.0-20.0); Calcium, Blood 8.6 mg/dL (8.5-10.1); Creatinine, Blood 0.89 mg/dL (0.60-1.20); Potassium, Blood 3.7 mmol/L (3.5-5.5)
--- NOTE | 2023-05-11 12:25 | NUR ---
Met with pt's family: Son, granddaughter and brother in law. They state the pt was able to carry on conversation yesterday, but today his breathing is shallow and rapid. He does not respond to verbal stimuli, and cried out when touched. He had a repeat ultrasound this am, with no changes or new issues. Dr. Friedman states he will speak with the family today, and palliative care will remain available to assist.
--- NOTE | 2023-05-11 13:03 | NUR ---
Spiritual care visit conducted. I visited with patient's family while the patient slept. They give me a life review of patient. They explain that he is very gumpy but they all love him. They all travelled to be bedside and are committed to do whatever it takes to help him succeed moving forward. They describe his less than ideal living situation and the their concerns about if, where, and how the patient will recover from his current status. I provide therapeutic listening, a calming presence and gentle residential treatment counselor. Family seem genuinely encouraged. I will continue to remain available to patient and family.
[2023-05-11 13:17] LABS: Hematocrit 40.6 % (37.0-53.0); Hemoglobin 13.8 g/dL (13.5-17.5); Mean Corpuscular HGB 32.7 pg (26.0-34.0); Mean Corpuscular Volume 96 fL (80-100); Mean Platelet Volume 10.5 fL (9.1-12.4); Platelet Count 176 K/mm3 (150-400); RDW Coefficient Variation 14.4 % (11.7-14.2); RDW Standard Deviation 50.5 fL (35.1-46.3); Red Blood Cell Count 4.22 M/mm3 (4.30-5.90); White Blood Cell Count 23.45 K/mm3 (4.00-11.30)
[2023-05-11 13:40] LABS: BAND PERCENT MAN 3 % (0-8); BASOPHILS PERCENT MAN 0 % (0-2); EOSINOPHILS PERCENT MAN 0 % (0-6); LYMPHOCYTES ABSOLUTE MAN 2.34 K/mm3 (0.84-5.20); LYMPHOCYTES PERCENT MAN 10 % (21-46); MONOCYTES PERCENT MAN 6 % (4-13); NEUTROPHILS ABSOLUTE MAN 19.69 K/mm3 (1.96-9.15); SEG NEUTROPHILS PERCENT MAN 81 % (41-73); TOTAL CELLS COUNTED 100
[2023-05-11 13:45] LABS: Anion Gap 4 mmol/L (6-16); Blood Urea Nitrogen 26 mg/dL (8-24); CO2, Blood 25 mmol/L (21-32); Calcium, Blood 8.5 mg/dL (8.5-10.1); Chloride, Blood 125 mmol/L (98-108); Creatinine, Blood 0.87 mg/dL (0.60-1.20); Glomerular Filtration Rate 91 (60-); Glucose, Blood 149 mg/dL (70-99); Magnesium, Blood 2.4 mg/dL (1.6-2.4); Phosphorus, Blood 1.7 mg/dL (2.5-4.9); Potassium, Blood 3.6 mmol/L (3.5-5.5); Sodium, Blood 154 mmol/L (136-145); Thyroid Stimulating Hormone 0.656 uIU/mL (0.360-4.800)
--- NOTE | 2023-05-11 17:32 | NUR ---
SHIFT SUMMARY: PT CONTINUES NON RESPONSIVE TO VERBAL STIMULI T/OUT THE DAY, DOES RESPOND BRIEFLY TO PAINFUL STIMULI BY GROANING OR LOCALIZING PAIN. PUPILS ARE CONSTRICTED AND RESPOND EQUALLY TO LIGHT. REPEAT HEAD CT OBTAINED TODAY. O2 SATS >92% ON 1 L/MIN VIA NC THAT IS IN PT'S MOUTH D/TO CONSISTENT MOUTH BREATHING, PT CONTINUES TACHYPNEIC. SINUS TACH ON MONITOR W/RATE 110s-120s. ADDITIONAL TESTS AND MEDICATION CHANGES MADE T/OUT THE DAY. REPOSITIONING AND ORAL CARE PERFORMED PER UNIT PROTOCOL. DRESSINGS TO R SHOULDER AND HIP ARE C/D/I. MULTIPLE FAMILY MEMBERS AT BEDSIDE T/OUT THE DAY, CONSULTED BY PROVIDER AND PALLIATIVE CARE. PT NOT ABLE TO V/U OF IGNITION RISK WHILE O2 IN USE. VISITORS AT BEDSIDE DENY POSSESSION OF IGNITION SOURCES. AT THIS TIME, PT RESTING QUIETLY IN BED. WILL CONTINUE TO MONITOR AND TREAT ACCORDINGLY UNTIL CHANGE OF SHIFT.
[2023-05-12] VITALS: BP 138/90
[2023-05-12 02:00] VITALS: BP 116/71
--- NOTE | 2023-05-12 05:49 | NUR ---
NOC SHIFT SUMMARY: PT REMAINS UNRESPONSIVE TO VERBAL STIMULI. HE WILL LOCALIZE TO PAINFUL STIMULI AT TIMES AND MOANS WITH ANY MOVEMENT. MEDICATED PER MAR FOR PAIN. PUPILS UNEQUAL UPON INITIAL ASSESSMENT, DR. Bazzi NOTIFED, NO NEW ORDERS. SR-ST WITH FREQ PVC'S. 1 RUN OF VTACH, SELF LIMITING. PT WAS ASYMPTOMATIC. BP WNL. ON 1LITER NC IN HIS MOUTH DUE TO BEING A MOUTH BREATHER. LUNGS COARSE, PT UNABLE TO FOLLOW COMMANDS ENOUGH TO COUGH TO HELP CLEAR SECRETIONS. NPO DUE TO SOMNOLENCE, NO BM THIS SHIFT. CONDOM CATH IN PLACE, REPLACED THIS SHIFT AND BED CHANGE COMPLETED. BRIEF IN PLACE. SKIN IS UNCHANGED, MEPILEX IN PLACE OVER WOUNDS. PG TO LEFT UPPER ARM HAS SMALL AMT BLOOD RETURN. UNABLE TO DRAW AM LABS. PIVX 1 TO RIGHT AC. PT'S OLDEST SON, HUSSEIN AND 2 ADULT GRANDCHILDREN IN TO VISIT, THEY ARE STAYING AT A [place]BY HOTEL. UPDATED ON CONDITION AND THEY LOOK FORWARD TO SPEAKING WITH THE MD. RN TO CONTINUE TO MONITOR.
[2023-05-12 06:00] VITALS: BP 134/80
[2023-05-12 07:19] VITALS: BP 146/105
--- NOTE | 2023-05-12 13:22 | NUR ---
Spiritual care visit conducted. Patient is lying in bed, many family members are present. They meet in the hallway to discuss moving to comfort care measures. They are understandably shaken by the sudden decline in patient's condition. I talk individually with several family members about how they are coping and what their needs are. I will continue to remain available to patient and family while they work through the transition and support one another.
--- NOTE | 2023-05-12 14:35 | NUR ---
SHIFT SUMMARY: PT HAS BEEN OPENING EYES TO VERBAL STIMULI, BUT DOES NOT TRACK MOVEMENT OR ENGAGE IN INTERACTION. PT DOES LOCALIZE PAINFUL STIMULI, GRIMACES OR GROANS W/MOVEMENT, MEDICATED PER EMAR. PUPILS HAVE BEEN EQUAL AND SLUGGISH TO LIGHT. O2 SATS >92% ON 1 L/MIN VIA NC IN MOUTH. PT PRESENTING WITH WEAK, PRODUCTIVE APPEARING COUGH. SUCTION AT BEDSIDE AND PERFORMED PRN W/MINIMAL SPUTUM PRODUCTION, BUT PT APPEARS TO BE SWALLOWING SPUTUM. SIN TACH ON MONITOR W/RATE 100-120. HYPOACTIVE BT UPON AUSCULTATION, NO BM THUS FAR THIS SHIFT. CONDOM CATHETER CONTINUES IN PLACE, DRAINING SHANDRA/TEA COLORED URINE TO GRAVITY. PROVIDER TO BEDSIDE MULTIPLE TIMES T/OUT THE DAY TO MEET W/FAMILY MEMBERS W/DECISION MADE TO TRANSFER PT TO COMFORT CARE. ORDERS HAVE BEEN PLACED. REPOSITIONING CONTINUES PER UNIT PROTOCOL. PT RESTING QUIETLY IN BED W/MULTIPLE FAMILY MEMBERS AT BEDSIDE. WILL CONTINUE TO MONITOR AND TREAT ACCORDINGLY UNTIL CHANGE OF SHIFT.
--- NOTE | 2023-05-12 16:12 | NUR ---
TRANSFER: PT HAS RECEIVED NEW ROOM ASSIGNMENT. REPORT GIVEN TO NEHA LEWIS TO RECEIVE PT. PT TRANSFERED TO NEW ROOM W/OUT INCIDENT. PT CONTINUES NONRESPONSIVE, BUT FAMILY V/U OF RISK OF IGNITION SOURCES W/OXYGEN.
--- NOTE | 2023-05-12 18:12 | NUR ---
SHIFT SUMMARY PT BROUGHT OVER TO ROOM 221 AT APPROXIMATELY 1615 FROM U, FAMILY OREINTED TO NEW ROOM AND HOW TO GET HERE FROM THE MAIN ENTRANCE, PT RESTING IN HIS BED STILL UNRESPONSIVE TO STAFF. FAMILY DENIES NEEDS AT THIS TIME, ENCOURAGED TO CALL IF THEY ARE IN NEED OF ANYTHING.
--- NOTE | 2023-05-13 04:29 | NUR ---
SHIFT SUMMARY PT REMAINS ON COMFORT CARE. T/O THE NIGHT PTS RESPIRATION RATE HAS INCREASED, ALONG WITH HR. MEDICATED FOR AIR HUNGER WITH PRN'S, AND ANXIETY WITH PRN'S. MODERATE RESULTS NOTED. PT HAS POORLY TOLLERATED BEING REPOSITION T/O THE NIGHT D/T PAIN. PT HAD NO PO INTAKE T/O THE NIGHT. MINIMAL AND DARK URINE OUTPUT NOTED. FAMILY VISITED EARLY IN THE NIGHT, REQUESTED TO BE CALLED IF PT WAS CLOSE TO PASSING. NO ACUTE EVENTS NOTED. NO IGNITION SOURCE NOTED
--- NOTE | 2023-05-13 13:16 | NUR ---
Spiritual care visit conducted. Patient is breathing fast and shallow. Family is bedside. I conduct a life review and learn about patient's struggles, strengths and quirks. Upon getting approval, I provide prayer for the patient and the family and as soon as I conclude patient's breathing stutters a few times and then within minutes stops completely and then a 5 more minutes more and his heart stops. I allow family time to grieve. They greive appropriately. I return to the and discuss self-care and explore ways they can support one another. I retieve the home info ([facility] home), supply grief support and then help them gather the patient's belongings and walk them down the gill. They voice appreciation and show signs of being comforted.
--- NOTE | 2023-05-13 15:14 | NUR ---
FINAL DISCHARGE NOTE FINAL DISCHARGE DOCUMENTATION COMPLETE, DONOR LINE DECLINED DONATION BASED ON MEDICAL STATUS/CONDITION AT TIME OF . HOME CONTACTED AND PROVIDED WITH FAMILY CONTACT INFORMATION. HOME REP TO COME VEHICLE BODY MAKER AND TRANSPORT PATIENT.
== END 2023-05-13 15:20 | DRG 535 ==
LOC: ER 12:34 → PCU 21:32 → SURS 05-12 16:00
PROVIDERS: Family Medicine; Internal Medicine; Nurse Practitioner Acute Care; Physician Assistant; ADMIT Internal Medicine
PROC: HZ2ZZZZ Detoxification Services for Substance Abuse Treatment (ICD-10-PCS; 2023-05-09)
PROC: 4A033R1 Measurement of Arterial Saturation, Peripheral, Percutaneous Approach (ICD-10-PCS; principal; 2023-05-11)
DX: S72.001A Fracture of unspecified part of neck of right femur, initial encounter for closed fracture (principal); G92.8 Other toxic encephalopathy; M62.82 Rhabdomyolysis; L03.115 Cellulitis of right lower limb; E87.20 Acidosis, unspecified; J96.11 Chronic respiratory failure with hypoxia; E87.0 Hyperosmolality and hypernatremia; Z51.5 Encounter for palliative care; Z66 Do not resuscitate; J44.9 Chronic obstructive pulmonary disease, unspecified; N40.0 Benign prostatic hyperplasia without lower urinary tract symptoms; I10 Essential (primary) hypertension; G89.29 Other chronic pain; F17.210 Nicotine dependence, cigarettes, uncomplicated; L89.219 Pressure ulcer of right hip, unspecified stage; E78.5 Hyperlipidemia, unspecified; L89.891 Pressure ulcer of other site, stage 1; W18.30XA Fall on same level, unspecified, initial encounter; L89.892 Pressure ulcer of other site, stage 2; M54.9 Dorsalgia, unspecified; F10.20 Alcohol dependence, uncomplicated; Z98.890 Other specified postprocedural states; Z79.811 Long term (current) use of aromatase inhibitors; Z79.899 Other long term (current) drug therapy; Z79.52 Long term (current) use of systemic steroids
CPT/HCPCS: 36415; 36600; 51701; 70450; 71045; 72125; 73030; 73502; 80048; 80053; 80069; 81001; 82550; 82803; 82947; 83605; 83735; 84100; 84145; 84443; 84484; 85025; 85027; 85610; 85730; 87040; 93005; 93010; 94640; 94760; 94762; 96365-59; 96375-59; 99285-25; A9270; J0690; J1170; J2060; J2270; J2543; J3010; J3370; J3411; J7030; J7042; J7050; J7070